=== PATIENT | female | born 1995 | race Caucasian/White ===

== ENCOUNTER 2017-04-09 01:28 | Emergency (ER) | payer BC ==
[2017-04-09 02:52] LABS: Bilirubin,Urine NEG (Negative); Blood,Urine NEG (Negative); Color,Urine Yellow (Yellow); Mucus,Urine FEW /HPF; Protein,Urine <15 mg/dL mg/dL (Negative)
[2017-04-09 03:46] VITALS: BP 124/68
[2017-04-09] MEDS ORDERED: MOTRIN PO ONE ×2 (04:21→04:24)
[2017-04-09 04:55] LABS: HCG Qualitative,Urine Positive (Negative)
--- NOTE | 2017-04-09 04:59 | Emergency Department Report ---
HPI - General Chief Complaint: Upper Respiratory Infection Time Seen by Provider: 04/09/17 04:24 - HPI HPI: 22-year-old female comes in complaining of chest pain with cough, cough, fever, sore throat with cough headache and body aches since yesterday. Patient reports that her symptoms started abruptly. Patient has a 2-month-old at home. There was concern that she could spread the flu to her child. ED Past Medical Hx - Past Medical History Previous Medical History?: Yes Hx Asthma: Yes - Surgical History Past Surgical History?: Yes Additional Surgical History: - Social History Smoking Status: Current Every Day Smoker Substance Use Type: Alcohol ED Review of Systems ROS: Stated complaint: FEVER 102 Other details as noted in HPI Constitutional: chills, fever, malaise Eyes: denies: eye pain, eye discharge, vision change ENT: throat pain Respiratory: cough Cardiovascular: chest pain (with cough). denies: palpitations Endocrine: no symptoms reported Gastrointestinal: denies: abdominal pain, nausea, diarrhea Genitourinary: denies: urgency, dysuria, discharge Musculoskeletal: denies: back pain, joint swelling, arthralgia Skin: denies: rash, lesions Neurological: headache Psychiatric: denies: anxiety, depression Hematological/Lymphatic: denies: easy bleeding, easy bruising Physical Exam - Physical Exam Vital Signs: Vital Signs 04/09/17 04/09/17 01:39 03:45 Temperature 100.9 F H 100.3 F H Pulse Rate 116 H 107 H Respiratory 18 18 Rate Blood Pressure 107/68 Blood Pressure 124/68 [Right] O2 Sat by Pulse 98 100 Oximetry Physical Exam: GENERAL: Alert and oriented x3, no apparent distress, Normal Gait, atraumatic. HEAD: Head is normocephalic and a-traumatic. EYES: Extra ocular muscles are intact. Pupils are equal, round, and reactive to light and accommodation. EARS: symetrical, atraumatic, non tender, ear canal clear and moderate cerumen, tympanic membrance non inflamed. gross auditory nml bilaterally. NOSE: Nose symetrical, Nontender,Nares appeared normal. MOUTH:Mouth is well hydrated and without lesions. Tonsils nonerythematous or swollen, Uvula midline, Tongue not elevated. Mucous membranes are moist. Posterior pharynx erythematous, no exudate or lesions. Patent airways. NECK: Supple. Non edematous, No carotid bruits. No lymphadenopathy or thyromegaly. LUNGS: Symetrical with respiration, No wheezing, no rales or crackles, CTAB. HEART: S1, S2 present, regular rate and rhythm without murmur, no rubs, no gallops. EXTREMITIES/MUSCULOSKELETAL: No cyanosis, clubbing, rash, lesions or edema. Full ROM bilaterally. NEUROLOGIC: No focal Deficit, Cranial nerves II through XII are grossly intact. No loss of sensation, No facial droop, PSYCHIATRIC: Mood is congruent with affect, denies suicidal or homicidal ideations. SKIN: Warm and dry, No lesions, No ulceration or induration present ED Course Vital Signs 04/09/17 04/09/17 01:39 03:45 Temperature 100.9 F H 100.3 F H Pulse Rate 116 H 107 H Respiratory 18 18 Rate Blood Pressure 107/68 Blood Pressure 124/68 [Right] O2 Sat by Pulse 98 100 Oximetry ED Medical Decision Making - Medical Decision Making Patient has been evaluated by this provider fast track. This provider was going to do a chest x-ray test came back positive. Discussed with patient not treat her for the flu. And she is to follow up with her HYDROTEL OPERATOR for further evaluation. Critical care attestation.: If time is entered above; I have spent that time in minutes in the direct care of this critically ill patient, excluding procedure time. ED Disposition Clinical Impression: Influenza Qualifiers: Weeks of gestation: less than 8 weeks Qualified Code(s): Z3A.01 - Less than 8 weeks gestation of Disposition: - TO HOME OR SELFCARE Is pt being admited?: No Does the pt Need Aspirin: No Condition: Stable Instructions: H1N1 Influenza (ED) Additional Instructions: You can take Tylenol for fever control and body aches. Since she is we do not recommend taking any medications without consulting her HYDROTEL OPERATOR. Referrals: OSCAR FIELDS MD [Primary Care Provider] - 3-5 Days you're, OB [Other] - 3-5 Days Forms: Work/School Release Form(ED), Accompanied Note
== END 2017-04-09 05:10 | disposition home or self-care (01) ==
LOC: ED 01:28
DX: O99.511 Diseases of the respiratory system complicating pregnancy, first trimester (principal); J11.1 Influenza due to unidentified influenza virus with other respiratory manifestations; O99.331 Smoking (tobacco) complicating pregnancy, first trimester; J45.909 Unspecified asthma, uncomplicated; Z3A.01 Less than 8 weeks gestation of pregnancy; Z88.5 Allergy status to narcotic agent
CPT/HCPCS: 81001; 81025; 99283